=== PATIENT | female | born 1995 | race Caucasian/White ===

== ENCOUNTER 2020-09-19 23:14 | Emergency (ER) | payer SELFPAY ==
[~2020-09-19] VITALS: Ht 157.5 cm; Wt 60.0 kg
[2020-09-20 03:33] VITALS: BP 115/60
== END 2020-09-20 03:38 | disposition home or self-care (01) ==
LOC: ER 23:14
DX: T40.1X1A Poisoning by heroin, accidental (unintentional), initial encounter (principal); T40.411A Poisoning by fentanyl or fentanyl analogs, accidental (unintentional), initial encounter; Y92.89 Other specified places as the place of occurrence of the external cause
CPT/HCPCS: 99283